=== PATIENT | female | born 1990 | race African-American/Black ===

== ENCOUNTER 2020-10-16 18:01 | Emergency (ER) | payer OTHER ==
[2020-10-16 18:06] VITALS: BP 148/95; PULSE 111; TEMP 99.3; BMI 40.3
[2020-10-16] MEDS ORDERED: IBUPROFEN 600 MG TABLET (FP) PO ONE ×2 (18:58→19:22)
[2020-10-16] MEDS ORDERED: SODIUM CHLORIDE 0.9% 500 ML INFUS.BAG IV ONE (18:59)
[2020-10-16 20:07] LABS: BASO % 0.6 % (0-2.0); EOS % 0.8 % (0-4.5); HEMATOCRIT 39.4 % (32.4-45.2); HEMOGLOBIN 13.1 GM/dl (10.7-15.3); LYMPH % 13.1 % (8-40); MCH 29.1 pg (25.7-33.7); MCHC 33.2 g/dl (32.0-36.0); MEAN CELL VOLUME 87.5 fl (80-96); MEAN PLT VOLUME 8.1 fl (7.5-11.1); MONO % 11.8 % (3.8-10.2); NEUT % 73.7 % (42.8-82.8); PLATELET COUNT 257 10^3/uL (134-434); RBC 4.51 M/mm3 (3.60-5.2); RDW 13.7 % (11.6-15.6); WHITE BLOOD COUNT 5.1 K/mm3 (4.0-10.8)
[2020-10-16 20:20] LABS: EPITHELIAL CELLS FEW /hpf
[2020-10-16 20:21] LABS: ALBUMIN 3.8 g/dl (3.4-5.0); BILIRUBIN,TOTAL 0.4 mg/dl (0.2-1); CALCIUM 8.6 mg/dl (8.5-10); CREATININE 0.8 mg/dl (0.55-1.3); TOT PROT 8.5 g/dl (6.4-8.2)
== END 2020-10-16 20:33 | disposition home or self-care (01) ==
LOC: FER 18:01
DX: R05 Cough (principal)
CPT/HCPCS: 36415; 80053; 81003; 81015; 82962; 84703; 85025; 99283-25

== ENCOUNTER 2022-06-04 07:58 | Emergency (ER) | payer OTHER ==
[2022-06-04 08:10] VITALS: BP 132/90; PULSE 95; RESP 18; TEMP 99.4; BMI 46.5
== END 2022-06-04 09:22 | disposition home or self-care (01) ==
LOC: FER 07:58
DX: J06.9 Acute upper respiratory infection, unspecified (principal)
CPT/HCPCS: 0241U-QW; 84703; 99283-25

== ENCOUNTER 2022-10-14 13:46 | Emergency (ER) | payer OTHER ==
[2022-10-14 14:00] VITALS: BP 107/65; PULSE 80; RESP 16; TEMP 98.8; BMI 48.2
[2022-10-14] MEDS ORDERED: ACETAMINOPHEN 325 MG TABLET (FP) PO ONE (15:22)
[2022-10-14] MEDS ORDERED: ACETAMINOPHEN 325 MG TABLET (FP) ONE (15:33)
== END 2022-10-14 16:50 | disposition home or self-care (01) ==
LOC: JERFT 13:46
DX: S46.811A Strain of other muscles, fascia and tendons at shoulder and upper arm level, right arm, initial encounter (principal); V49.40XA Driver injured in collision with unspecified motor vehicles in traffic accident, initial encounter; Y93.I9 Activity, other involving external motion; Y92.009 Unspecified place in unspecified non-institutional (private) residence as the place of occurrence of the external cause
CPT/HCPCS: 99283-25

== ENCOUNTER 2023-10-13 17:26 | Emergency (ER) | payer OTHER ==
[2023-10-13 17:35] VITALS: TEMP 98.4; BMI 45.7
[2023-10-13 20:19] LABS: BASO % 0.7 % (0-2.0); EOS % 2.1 % (0-4.5); HEMATOCRIT 35.4 % (32.4-45.2); HEMOGLOBIN 11.4 GM/dL (10.7-15.3); LYMPH % 46.7 % (8-40); MCH 26.5 pg (25.7-33.7); MCHC 32.3 g/dl (32.0-36.0); MEAN CELL VOLUME 82.1 fl (80-96); MEAN PLT VOLUME 7.7 fl (7.5-11.1); MONO % 9.4 % (3.8-10.2); NEUT % 41.1 % (42.8-82.8); PLATELET COUNT 329 10^3/uL (134-434); RBC 4.31 M/mm3 (3.60-5.2); RDW 16.3 % (11.6-15.6)
[2023-10-13 20:25] LABS: INR 1.05 (0.83-1.09); PROTHROMBIN TIME (PATIENT) 12.1 SEC (9.7-13.0)
[2023-10-13 20:41] LABS: CALCIUM 9.5 mg/dL (8.5-10.1)
[2023-10-13 20:42] LABS: ALBUMIN 3.7 g/dl (3.4-5.0); BLOOD UREA NITROGEN 11.2 mg/dL (7-18)
[2023-10-13 20:45] LABS: CREATININE 0.8 mg/dL (0.55-1.3)
[2023-10-13 20:46] LABS: BILIRUBIN,TOTAL 0.3 mg/dL (0.2-1)
[2023-10-13 21:01] LABS: EPI CELLS 13 /uL (0-25.1); HYALINE CASTS 1 /uL (0-3.1); PH,URINE 5.5 (5.0-8.0); URINE APPEARANCE TURBID; URINE BACTERIA 106 /uL (0-1359); URINE BILIRUBIN 1+ (NEGATIVE); URINE COLOR RED; URINE GLUCOSE (UA) NEGATIVE (NEGATIVE); URINE KETONE NEGATIVE (NEGATIVE); URINE LEUK ESTERASE 2+ (NEGATIVE); URINE NITRITE NEGATIVE (NEGATIVE); URINE PROTEIN 1+ (NEGATIVE); URINE RBC 21636 /uL (0-23.9); URINE UROBILINOGEN 0.2 mg/dL (0.2-1.0); URINE WBC 349 /uL (0-25.8)
[2023-10-13 21:02] LABS: HCG,QUALITATIVE URINE Negative
[2023-10-13 21:34] LABS: HIV INTERPRETATION NEGATIVE (NEGATIVE)
[2023-10-13 22:14] VITALS: BP 112/68; PULSE 82; RESP 16
== END 2023-10-13 21:15 | disposition home or self-care (01) ==
LOC: JER 17:26
DX: N93.9 Abnormal uterine and vaginal bleeding, unspecified (principal)
CPT/HCPCS: 36415; 76830-TC; 80053; 81003; 84703; 85025; 85610; 86803; 87077; 87086; 87389; 99284-25